=== PATIENT | male | born 1945 | race Caucasian/White ===

== ENCOUNTER 2018-09-01 11:53 | Inpatient (IN) | payer BC, MEDICARE, OTHER ==
[~2018-09-01] VITALS: Ht 179.1 cm; Wt 68.5 kg
--- NOTE | 2018-09-01 12:00 | NUR ---
BIB RA88 from [facility] Oncology clinic with c/o hypotension. Per EMS pt's BP was 86/40 on scene, pt was given NS 250ml bolus in route to ER and last BP recorded by EMS = 101/59, ZF=088 per EMS.
[2018-09-01] MEDS ORDERED: IV NORMAL SALINE 1000 ML BAG IV ONE (12:15)
[2018-09-01] MEDS ORDERED: ONDANSETRON 4 MG/2 ML VIAL IV ONE (12:15)
[2018-09-01] MEDS ORDERED: VANCOMYCIN IV 1,000 MG in IV DEXTROSE 5% 250 ML IV ONE (12:15)
[2018-09-01] MEDS ORDERED: PIPERACILLIN SODIUM/TAZOBACTAM 3.375 G in IV DEXTROSE 5% 50 ML IV ONE (12:15)
[2018-09-01] MEDS ORDERED: ACETAMINOPHEN ES 500 MG TABLET PO ONE (12:15)
--- NOTE | 2018-09-01 12:20 | NUR ---
CODE SEPSIS CALLED AT 1211.
[2018-09-01 12:24] LABS: *BILIRUBIN,URIN NEGATIVE (NEGATIVE); *BLOOD, URINE Trace-intact (NEGATIVE); *CLARITY,URINE CLEAR (CLEAR); *COLOR,URINE YELLOW (YELLOW); *KETONES,URINE TRACE (NEGATIVE); *PROTEIN,URINE TRACE (NEGATIVE); *UROBILINOGEN,URINE 0.2 E.U./dl (NORMAL); LEUKOCYTE ESTERASE ,URINE NEGATIVE (NEGATIVE); NITRITE, URINE NEGATIVE (NEGATIVE); PH,URINE 5.5 (5.0-8.0); UGLUCOSE NEGATIVE (NEGATIVE)
[2018-09-01 12:25] LABS: BASOPHILS # (AUTO) 0.1 K/uL (0.0-8.0); BASOPHILS % (AUTO) 0.5 % (0.0-2.0); EOSINOPHILS % (AUTO) 0.2 % (0.0-7.0); HEMOGLOBIN 11.4 g/dL (12.5-16.3); LYMPHOCYTES # (AUTO) 0.8 K/uL (20.0-40.0); LYMPHOCYTES % (AUTO) 6.7 % (20.5-51.5); MEAN CORPUSCULAR HEMOGLOBIN 26.8 uug (23.8-33.4); MEAN CORPUSCULAR HGB CONC 34 g/dL (32.5-36.3); MEAN CORPUSCULAR VOLUME 79.9 fL (73.0-96.2); MONOCYTES % (AUTO) 8.3 % (0.0-11.0); NEUTROPHILS # (AUTO) 9.8 K/uL (1.8-8.9); NEUTROPHILS % (AUTO) 84.3 % (38.5-71.5); PLATELET COUNT (AUTO) 187 K/uL (152-348); RED BLOOD CELL COUNT(AUTO) 4.25 MIL/uL (4.06-5.63); WHITE BLOOD COUNT (AUTO) 11.6 K/uL (3.6-10.2)
[2018-09-01] MEDS ORDERED: LEVE500T9 PO (12:25)
[2018-09-01] MEDS ORDERED: SIMV40TA5 PO (12:25)
[2018-09-01] MEDS ORDERED: NICO1PAT35 TD (12:25)
[2018-09-01] MEDS ORDERED: ASPI81TA31 PO (12:25)
[2018-09-01] MEDS ORDERED: METF-440 PO (12:25)
[2018-09-01] MEDS ORDERED: ONDA8TAB9 SL (12:25)
[2018-09-01] MEDS ORDERED: PANT40TA4 PO (12:25)
[2018-09-01] MEDS ORDERED: MIRACLE MOUTHWASH PO (12:25)
[2018-09-01] MEDS ORDERED: LISI10TA5 PO (12:25)
[2018-09-01] MEDS ORDERED: UBID50TA3 PO (12:25)
[2018-09-01] MEDS ORDERED: TRAZ-182 PO (12:25)
[2018-09-01] MEDS ORDERED: HYDR-3326 PO (12:25)
[2018-09-01] MEDS ORDERED: ALBU18HF2 IH (12:25)
[2018-09-01] MEDS ORDERED: ACET-2154 PO (12:25)
[2018-09-01] MEDS ORDERED: [UNRECOGNIZED DRUG - OTHER] TOP (12:25)
[2018-09-01] MEDS ORDERED: CIPR-262 PO (12:25)
[2018-09-01 12:26] LABS: BACTERIA,URINE FEW /HPF (NONE SEEN); MUCUS,URINE MODERATE /LPF (0-FEW); RBC,URINE 0-3 /HPF (0-3); SQUAMOUS EPITHELIAL CELL,UR FEW /HPF (NONE SEEN)
[2018-09-01] MEDS ORDERED: VANCOMYCIN IV 200 ML ONE (12:28)
[2018-09-01] MEDS ORDERED: ACETAMINOPHEN ES 500 MG TABLET ONE (12:28)
[2018-09-01] MEDS ORDERED: ONDANSETRON 4 MG/2 ML VIAL ONE (12:28)
[2018-09-01] MEDS ORDERED: PIPERACILLIN/TAZOBACTAM/D5W 50 ML IV ONE (12:29)
[2018-09-01 12:33] LABS: CARBON DIOXIDE 22 mmol/L (21-32); CHLORIDE 102 mmol/L (98-107); CREATININE 1.1 mg/dL (0.6-1.3); GLUCOSE 118 mg/dL (74-106); POTASSIUM 4.4 mmol/L (3.5-5.1); UREA NITROGEN, BLOOD 21 mg/dL (7-18)
[2018-09-01 12:45] LABS: NEUTROPHILS % (MANUAL) 85 % (42-75)
[2018-09-01 12:46] LABS: LYMPHOCYTES % (MANUAL) 7 % (20-40); MONOCYTES % (MANUAL) 8 % (2-10)
[2018-09-01 12:48] LABS: ALANINE AMINOTRANSFERASE 28 U/L (16-63); ALKALINE PHOSPHATASE 131 U/L (50-136); ASPARTATE AMINOTRANSFERASE 89 U/L (15-37); BILIRUBIN,DIRECT 0.2 mg/dL (0.0-0.2); BILIRUBIN,TOTAL 0.5 mg/dL (0.2-1.0); TOTAL PROTEIN, SERUM 6.4 g/dL (6.4-8.2)
[2018-09-01] MEDS ORDERED: ACETAMINOPHEN 325 MG TABLET PO PRN (14:00)
[2018-09-01] MEDS ORDERED: ZOLPIDEM 5 MG TABLET PO PRN (14:00)
[2018-09-01] MEDS ORDERED: Z GUARD REMEDY PASTE 57 GM TUBE TOP PRN (14:00)
[2018-09-01] MEDS ORDERED: ONDANSETRON 4 MG/2 ML VIAL IV PRN ×2 (14:00→16:00)
[2018-09-01] MEDS ORDERED: MAGNESIUM HYDROXIDE 30 ML LIQUID UDC PO PRN (14:00)
--- NOTE | 2018-09-01 14:20 | NUR ---
SBAR REPORTB TO 2ND FLOOR, PT TO RM 212 VIA W/C.
[2018-09-01] MEDS ORDERED: IPRATROPIUM BROMIDE 0.5 MG/2.5 ML NEBU NEB PRN (14:30)
[2018-09-01] MEDS ORDERED: ALBUTEROL SULFATE 2.5 MG/3 ML NEBU NEB PRN (14:30)
[2018-09-01] MEDS ORDERED: INSULIN REGULAR, HUMAN 300 UNIT/3 ML VIAL SQ PRN (14:30)
[2018-09-01] MEDS ORDERED: DEXTROSE 50% 50 ML DISP.SYRIN IV PRN (14:30)
--- NOTE | 2018-09-01 14:30 | NUR ---
Received this 73 yo male per telma from ER with the chief complaint of weakness and diagnosis fo sepsis. Transferred to bed comfortably. Routine admission care rendered. Placed on tele, SR. Awake, alert, oriented x 4, able to move extremities on purpose. Note SOB on exertion with O2 sat of 90 % on RA. Continent of bowel and bladder, uses urinal. Trent King FOOD TESTER seen patient with admission orders
--- NOTE | 2018-09-01 14:39 | NUR ---
Clinical Pharmacy Note: Vancomycin Dosing per Pharmacy Subjective: Vancomycin IV to start on this 73 yo male patient for empiric tx (waiting for MD note). had vanco 1gm IVPB x1 in ED today at noon Objective: BUN 21/Scr 1.1 WBC 11.6 Temperature 99.9 Assessment/Plan: Will start vancomycin 1000mg IVPB Q17hr for a predicted vancomycin steady state trough level of 15.8 mcg/ml. Will draw a vancomycin trough level prior to the 4th dose of vancomycin (not ordered yet). Will monitor renal function and adjust vancomycin dose, if needed, should renal function change significantly. Will follow daily.
[2018-09-01 14:42] VITALS: BP 89/57
[2018-09-01] MEDS ORDERED: [UNRECOGNIZED DRUG - OTHER] PO SCH (15:45)
[2018-09-01] MEDS: LEVOFLOXACIN 750MG/D5W 750 MG in PREMIXED 1 EACH IV SCH (16:41)
[2018-09-01] MEDS: IV NS 1000 ML 1,000 ML IV PRN ×2 (16:42→20:34)
--- NOTE | 2018-09-01 16:45 | NUR ---
IVF and Levaquin started as ordered
[2018-09-01] MEDS: BLOOD SUGAR DIAGNOSTIC 1 EACH STRIP VI SCH ×2 (17:36→21:37)
[2018-09-01] MEDS: ONDANSETRON INJ 8 MG in IV NORMAL SALINE 50 ML IV PRN (18:14)
--- NOTE | 2018-09-01 18:15 | NUR ---
Nauseated with vomiting. Zofran IV given as ordered. Repositioned in bed comfortably.
[2018-09-01 19:50] VITALS: BP 84/52
[2018-09-01] MEDS ORDERED: IV NS 1000 ML 1,000 ML IV ONE (20:30)
[2018-09-01] MEDS: CEFEPIME HCL 1 G in IV DEXTROSE 5% 50 ML IV SCH (20:34)
[2018-09-01] MEDS: LEVETIRACETAM 500 MG TABLET PO SCH (20:35)
[2018-09-01] MEDS: SIMVASTATIN 40 MG TABLET PO SCH (20:35)
[2018-09-01] MEDS: TRAZODONE 50 MG TABLET PO SCH (20:35)
--- NOTE | 2018-09-01 21:50 | NUR ---
Pnts SBP was 80s, IV NS Bolus was ordered by Dr. Ambrosio. IV Bolus was infused ; SBP above 100 Cont monitor
[2018-09-01] MEDS ORDERED: MEROPENEM 1 G in IV NORMAL SALINE 100 ML IV SCH ×4 (22:00)
[2018-09-01] MEDS ORDERED: MEROPENEM 0.5 G in IV NORMAL SALINE 50 ML IV SCH (22:00)
[2018-09-01 22:18] VITALS: BP 92/51
[2018-09-02 00:34] VITALS: BP 101/60
[2018-09-02 02:33] LABS: BASOPHILS % (AUTO) 0.4 % (0.0-2.0); EOSINOPHILS # (AUTO) 0.2 K/uL (0.0-0.7); EOSINOPHILS % (AUTO) 3.2 % (0.0-7.0); HEMATOCRIT 28.1 % (36.7-47.1); HEMOGLOBIN 9.3 g/dL (12.5-16.3); LYMPHOCYTES % (AUTO) 16.1 % (20.5-51.5); MEAN CORPUSCULAR HEMOGLOBIN 26.5 uug (23.8-33.4); MEAN CORPUSCULAR HGB CONC 33 g/dL (32.5-36.3); MEAN CORPUSCULAR VOLUME 79.8 fL (73.0-96.2); MONOCYTES # (AUTO) 0.8 K/uL (2.0-10.0); MONOCYTES % (AUTO) 12.6 % (0.0-11.0); NEUTROPHILS # (AUTO) 4.4 K/uL (1.8-8.9); NEUTROPHILS % (AUTO) 67.7 % (38.5-71.5); PLATELET COUNT (AUTO) 140 K/uL (152-348); RED BLOOD CELL COUNT(AUTO) 3.52 MIL/uL (4.06-5.63); WHITE BLOOD COUNT (AUTO) 6.5 K/uL (3.6-10.2)
[2018-09-02 02:54] LABS: CARBON DIOXIDE 22 mmol/L (21-32); CHLORIDE 108 mmol/L (98-107); CHOLESTEROL 175 mg/dL (<200); CREATININE 0.9 mg/dL (0.6-1.3); GLUCOSE 86 mg/dL (74-106); HDL CHOLESTEROL 20 mg/dL (40-60); PHOSPHOROUS 2.6 mg/dL (2.5-4.9); POTASSIUM 3.9 mmol/L (3.5-5.1); TRIGLYCERIDES 117 MG/DL (30-150); UREA NITROGEN, BLOOD 17 mg/dL (7-18)
[2018-09-02 03:10] LABS: MAGNESIUM 1.2 mg/dL (1.8-2.4)
--- NOTE | 2018-09-02 04:00 | NUR ---
Dr. King ordered Labs in the 0000,09/02/18. Critical Lab og Mg 1.[address] Sorto, 2 g of Mg is replacing now per Dr. Sorto's order. Cont to monitor.
[2018-09-02] MEDS: MAGNESIUM SULFATE/D5W 100 ML IV SCH ×2 (04:02→05:13)
[2018-09-02 05:03] VITALS: BP 96/50
[2018-09-02] MEDS: VANCOMYCIN IV 1 G in PREMIXED 0 EACH IV SCH ×2 (05:29→21:52)
[2018-09-02] MEDS: BLOOD SUGAR DIAGNOSTIC 1 EACH STRIP VI SCH ×4 (06:51→20:33)
[2018-09-02] MEDS: PANTOPRAZOLE SODIUM 40 MG TABLET.DR PO SCH (06:55)
--- NOTE | 2018-09-02 07:39 | NUR ---
Awake, alert, oriented x 4. Denies pain, not in distress. IVF infusing. Tele SR
[2018-09-02 07:56] VITALS: BP 112/70
[2018-09-02] MEDS: ASPIRIN 81 MG TAB.CHEW PO SCH (08:34)
[2018-09-02] MEDS: LEVETIRACETAM 500 MG TABLET PO SCH ×2 (08:35→20:33)
[2018-09-02] MEDS: CEFEPIME HCL 1 G in IV DEXTROSE 5% 50 ML IV SCH ×2 (08:41→20:32)
[2018-09-02] MEDS: NICOTINE 14 MG/24HR PATCH TD SCH (08:41)
[2018-09-02] MEDS ORDERED: NICOTINE 21 MG/24HR PATCH TD SCH (09:00)
[2018-09-02] MEDS ORDERED: LISINOPRIL 10 MG TABLET PO SCH (09:00)
[2018-09-02] MEDS ORDERED: MAGNESIUM SULFATE/D5W 100 ML IV SCH (10:00)
[2018-09-02] MEDS: CALCIUM CARBONATE 500 MG TABLET PO SCH ×2 (11:10→20:33)
[2018-09-02 11:20] VITALS: BP 117/71
[2018-09-02] MEDS: IV NS 1000 ML 1,000 ML IV PRN (11:52)
--- NOTE | 2018-09-02 11:56 | NUR ---
Clinical Pharmacy Note: Vancomycin Dosing per Pharmacy Subjective: Vancomycin IV to continue on this 73 yo male patient for pneumonia/sepsis. Objective: BUN 17/Scr 0.9 WBC 6.5 Temperature 98.1 Assessment/Plan: Will continue vancomycin 1000mg IVPB Q17hr for a predicted vancomycin steady state trough level of 15.8 mcg/ml. Will draw a vancomycin trough level prior to the 4th dose of vancomycin (ordered for tomorrow at 1430). Will monitor renal function and adjust vancomycin dose, if needed, should renal function change significantly. Will follow daily.
--- NOTE | 2018-09-02 12:47 | NUR ---
Eating fairly. Not in distress, afebrile, denies pain. Endorsed for further care
[2018-09-02] MEDS: ONDANSETRON INJ 8 MG in IV NORMAL SALINE 50 ML IV PRN (13:36)
[2018-09-02 15:20] VITALS: BP 113/73
[2018-09-02] MEDS: LEVOFLOXACIN 750MG/D5W 750 MG in PREMIXED 1 EACH IV SCH (16:41)
[2018-09-02 17:59] LABS: *AMPHETAMINE, URINE NEGATIVE (NEGATIVE); *BARBITURATE, URINE NEGATIVE (NEGATIVE); *CANNABINOID, URINE NEGATIVE (NEGATIVE); *COCCAINE, URINE NEGATIVE (NEGATIVE); *OPIATE, URINE NEGATIVE (NEGATIVE); *PHENCYCLIDINE SCREEN,URINE NEGATIVE (NEGATIVE)
--- NOTE | 2018-09-02 19:30 | NUR ---
Received patient in stable condition at start of shift. Vital signs are in range. Pertinent assessment completed. A/Ox4 & able to make all his needs known. Skin intact. All extremities intact. Noted with right side nilson cath currently running with IV NS at 100cc/hr. Also with left AC IV site which is locked. Denying pain & SOB at start of shift. Patient stating he has constant N/V. No emesis present at start of shift. Will administer medications per MD & reassess nausea. On ATB therapy. Bed in low position & locked. Call light within reach. Will continue to monitor through shift.
[2018-09-02] MEDS: TRAZODONE 50 MG TABLET PO SCH (20:33)
[2018-09-02] MEDS: SIMVASTATIN 40 MG TABLET PO SCH (20:33)
[2018-09-02 21:03] VITALS: BP 121/73
[2018-09-03 00:55] VITALS: BP 139/79
[2018-09-03 05:55] VITALS: BP 120/72
[2018-09-03] MEDS: PANTOPRAZOLE SODIUM 40 MG TABLET.DR PO SCH (06:15)
--- NOTE | 2018-09-03 06:27 | NUR ---
Patient slept intermittently during the night. No C/O pain or SOB during shift. All needs attended to. All medications administered per MD order. No N/V noted during the shift. Blood sugar this AM at 74. No s/s of hypo/hyperglycemia noted. Safety measures maintained. Call light within reach. Will endorse accordingly.
[2018-09-03] MEDS: BLOOD SUGAR DIAGNOSTIC 1 EACH STRIP VI SCH ×4 (06:34→20:34)
[2018-09-03 07:07] LABS: CARBON DIOXIDE 23 mmol/L (21-32); CHLORIDE 108 mmol/L (98-107); CREATININE 0.7 mg/dL (0.6-1.3); GLUCOSE 93 mg/dL (74-106); MAGNESIUM 1.5 mg/dL (1.8-2.4); PHOSPHOROUS 2.5 mg/dL (2.5-4.9); POTASSIUM 3.5 mmol/L (3.5-5.1); UREA NITROGEN, BLOOD 8 mg/dL (7-18)
[2018-09-03 07:15] LABS: BASOPHILS % (AUTO) 0.5 % (0.0-2.0); EOSINOPHILS # (AUTO) 0.2 K/uL (0.0-0.7); EOSINOPHILS % (AUTO) 3.2 % (0.0-7.0); HEMATOCRIT 29.4 % (36.7-47.1); HEMOGLOBIN 9.8 g/dL (12.5-16.3); LYMPHOCYTES # (AUTO) 1.5 K/uL (20.0-40.0); MEAN CORPUSCULAR HEMOGLOBIN 26.8 uug (23.8-33.4); MEAN CORPUSCULAR HGB CONC 33 g/dL (32.5-36.3); MEAN CORPUSCULAR VOLUME 80.7 fL (73.0-96.2); MONOCYTES # (AUTO) 0.8 K/uL (2.0-10.0); MONOCYTES % (AUTO) 11.9 % (0.0-11.0); NEUTROPHILS # (AUTO) 3.9 K/uL (1.8-8.9); NEUTROPHILS % (AUTO) 61.4 % (38.5-71.5); PLATELET COUNT (AUTO) 158 K/uL (152-348); RED BLOOD CELL COUNT(AUTO) 3.64 MIL/uL (4.06-5.63); WHITE BLOOD COUNT (AUTO) 6.3 K/uL (3.6-10.2)
[2018-09-03] MEDS: ASPIRIN 81 MG TAB.CHEW PO SCH (10:00)
[2018-09-03] MEDS: CALCIUM CARBONATE 500 MG TABLET PO SCH (10:01)
[2018-09-03] MEDS: NICOTINE 14 MG/24HR PATCH TD SCH (10:01)
[2018-09-03] MEDS: LEVETIRACETAM 500 MG TABLET PO SCH ×2 (10:01→20:25)
[2018-09-03] MEDS: CEFEPIME HCL 1 G in IV DEXTROSE 5% 50 ML IV SCH ×2 (10:05→20:26)
[2018-09-03] MEDS: MAGNESIUM SULFATE/D5W 100 ML IV SCH ×4 (10:05→13:39)
[2018-09-03] MEDS: ENOXAPARIN SODIUM 40 MG/0.4 ML DISP.SYRIN SQ SCH (10:10)
[2018-09-03 11:16] VITALS: BP 116/74
[2018-09-03 15:09] VITALS: BP 103/62
[2018-09-03] MEDS: VANCOMYCIN IV 1 G in PREMIXED 0 EACH IV SCH (15:53)
[2018-09-03] MEDS: LEVOFLOXACIN 750MG/D5W 750 MG in PREMIXED 1 EACH IV SCH (16:14)
--- NOTE | 2018-09-03 16:21 | NUR ---
Clinical Pharmacy Note: Vancomycin Dosing per Pharmacy Subjective: Vancomycin IV to continue on this 73 yo male patient for pneumonia/sepsis. Objective: BUN 8/Scr 0.7 WBC 6.3 Temperature 97.8 Vancomycin trough today at 1440:7.9 Assessment/Plan: Since Vancomycin trough is subtherapeutic, will change dose to 1 gram IV every 11hrs(second dose tomorrow at 0300)for a predicted vancomycin steady state trough level of 16.2 mcg/ml. Will draw a vancomycin trough level prior to the 4th dose of vancomycin (not ordered yet). Will monitor renal function and adjust vancomycin dose, if needed, should renal function change significantly. Will follow daily.
--- NOTE | 2018-09-03 19:10 | NUR ---
Received patient asleep on bed, no signs of acute distress noted at this time. IV site on LAC, patent and intact. Safety measures initiated, placed bed on low and locked position, bed siderails padded. Bed alarm on. Patient belongings and call owens within reach.
[2018-09-03] MEDS: SIMVASTATIN 40 MG TABLET PO SCH (20:25)
[2018-09-03] MEDS: TRAZODONE 50 MG TABLET PO SCH (20:25)
[2018-09-03 20:35] VITALS: BP 108/62
[2018-09-04] MEDS ORDERED: VANCOMYCIN IV 1 G in PREMIXED 0 EACH IV SCH ×2 (03:00→16:00)
[2018-09-04] MEDS: IV NS 1000 ML 1,000 ML IV PRN ×2 (03:33→23:04)
[2018-09-04 05:04] VITALS: BP 123/67
--- NOTE | 2018-09-04 06:43 | NUR ---
PATIENT SLEPT THROUGHOUT THE SHIFT. NO SIGNS OF ACUTE DISTRESS NOTED AT THIST ORACIO. NO EPISODE OF N/V NOTED. IV SITE ON LAC AND PORTACATH ON R UPPER CHEST, PATENT AND INTACT. KEPT PATIENT SAFE AND COMFORTABLE AT ALL TIMES. ALL NEEDS ATTENDED AND MET. CALL TORRE WITHIN REACH.
[2018-09-04] MEDS: BLOOD SUGAR DIAGNOSTIC 1 EACH STRIP VI SCH ×4 (06:54→21:29)
[2018-09-04] MEDS: PANTOPRAZOLE SODIUM 40 MG TABLET.DR PO SCH (06:54)
[2018-09-04] MEDS: NICOTINE 14 MG/24HR PATCH TD SCH (09:00)
[2018-09-04] MEDS: ENOXAPARIN SODIUM 40 MG/0.4 ML DISP.SYRIN SQ SCH (09:00)
[2018-09-04] MEDS: ASPIRIN 81 MG TAB.CHEW PO SCH (09:46)
[2018-09-04] MEDS: LEVETIRACETAM 500 MG TABLET PO SCH ×2 (09:46→21:21)
[2018-09-04] MEDS: CEFEPIME HCL 1 G in IV DEXTROSE 5% 50 ML IV SCH ×2 (09:47→21:36)
[2018-09-04] MEDS: ONDANSETRON INJ 8 MG in IV NORMAL SALINE 50 ML IV PRN (10:02)
[2018-09-04 11:11] VITALS: BP 118/79
--- NOTE | 2018-09-04 12:36 | NUR ---
Clinical Pharmacy Note: Vancomycin Dosing per Pharmacy Subjective: Vancomycin IV to continue on this 73 yo male patient for pneumonia/sepsis. Objective: BUN 8/Scr 0.7 (09/03) WBC 6.3 (09/03) Temperature 97.4 Vancomycin trough pending today at 1330 Assessment/Plan: Awaiting trough before 4th scheduled dose at 1400. Trough scheduled for 1330, will check level at that time and adjust as needed. Will update when level available. Will follow Addendum: 09/04/18 at 1552 by VELIA LEIGH ADM TROUGH RESULTED 9.0, TAKEN ONE HOUR LATE AT 1431. ADJUSTED FOR LEVEL TIMES/ADMINISTRATION, REGIMEN WILL BE ADJUSTED TO 1GM Q8H FOR NEW ESTIMATED TROUGH OF 18, FIRST DOSE TODAY AT 1600. NEXT TROUGH ORDERED DUE TOMORROW AT 1530. WILL CHECK AND ADJUST NEEDED. WILL FOLLOW
[2018-09-04 15:15] VITALS: BP 112/68
[2018-09-04] MEDS: LEVOFLOXACIN 750MG/D5W 750 MG in PREMIXED 1 EACH IV SCH (16:20)
--- NOTE | 2018-09-04 19:46 | NUR ---
RECEIVED PATIENT ALERT ORIENTED, NO SOB NO CHEST PAIN NOTED. USES URINAL FOR BLADDER ELIMINATIONS, NO COMPLAIN OF PAIN, CALL LIGHT WITHIN REACH.
[2018-09-04 20:16] VITALS: BP 118/68
--- NOTE | 2018-09-04 20:50 | NUR ---
PATIENT REQUEST TO AMBULATE, ASSIST PATIENT TO WALK IN THE HALLWAYS WITH THE WALKER. PATIENT WALKED HAFT WAY OF THE HALLWAYS, THEN ASSIST IN THE WHEELCHAIR. NO COMPLAIN OF PAIN, CALL LIGHT WITHIN REACH.
[2018-09-04] MEDS: TRAZODONE 50 MG TABLET PO SCH (21:21)
[2018-09-04] MEDS: SIMVASTATIN 40 MG TABLET PO SCH (21:21)
--- NOTE | 2018-09-05 05:46 | NUR ---
PATIENT SLEPT MOST OF THE NIGHT, NO SOB NO CHEST PAIN NOTED, NO COMPLAIN OF PAIN NOTED. SHERRI CATH PATENT, USES URINAL FOR BLADDER ELIMINATIONS, ASSISTED WITH TOILETING, CALL LIGHT WITHIN REACH.
[2018-09-05 06:16] VITALS: BP 99/62
[2018-09-05] MEDS: PANTOPRAZOLE SODIUM 40 MG TABLET.DR PO SCH (06:17)
[2018-09-05] MEDS: BLOOD SUGAR DIAGNOSTIC 1 EACH STRIP VI SCH ×4 (06:21→20:12)
--- NOTE | 2018-09-05 08:00 | NUR ---
Pt is in no acute distress. Plan of care implemented for fall precaution, nausea management, pain management. Pt agreeable with plan of care. call light is within reach.
[2018-09-05 08:48] LABS: BASOPHILS # (AUTO) 0.1 K/uL (0.0-8.0); BASOPHILS % (AUTO) 1.1 % (0.0-2.0); EOSINOPHILS # (AUTO) 0.2 K/uL (0.0-0.7); EOSINOPHILS % (AUTO) 3.9 % (0.0-7.0); HEMATOCRIT 31.9 % (36.7-47.1); HEMOGLOBIN 10.7 g/dL (12.5-16.3); LYMPHOCYTES # (AUTO) 1.8 K/uL (20.0-40.0); LYMPHOCYTES % (AUTO) 31.7 % (20.5-51.5); MEAN CORPUSCULAR HGB CONC 34 g/dL (32.5-36.3); MEAN CORPUSCULAR VOLUME 80.3 fL (73.0-96.2); MONOCYTES # (AUTO) 0.8 K/uL (2.0-10.0); MONOCYTES % (AUTO) 13.1 % (0.0-11.0); NEUTROPHILS # (AUTO) 2.9 K/uL (1.8-8.9); NEUTROPHILS % (AUTO) 50.2 % (38.5-71.5); PLATELET COUNT (AUTO) 213 K/uL (152-348); RED BLOOD CELL COUNT(AUTO) 3.97 MIL/uL (4.06-5.63); WHITE BLOOD COUNT (AUTO) 5.8 K/uL (3.6-10.2)
[2018-09-05] MEDS: ENOXAPARIN SODIUM 40 MG/0.4 ML DISP.SYRIN SQ SCH (09:00)
[2018-09-05] MEDS: NICOTINE 14 MG/24HR PATCH TD SCH (09:00)
[2018-09-05 09:03] LABS: CARBON DIOXIDE 27 mmol/L (21-32); CHLORIDE 106 mmol/L (98-107); CREATININE 0.7 mg/dL (0.6-1.3); GLUCOSE 101 mg/dL (74-106); MAGNESIUM 1.5 mg/dL (1.8-2.4); POTASSIUM 3.3 mmol/L (3.5-5.1); UREA NITROGEN, BLOOD 5 mg/dL (7-18)
[2018-09-05] MEDS: ONDANSETRON INJ 8 MG in IV NORMAL SALINE 50 ML IV PRN (09:24)
[2018-09-05] MEDS: LEVETIRACETAM 500 MG TABLET PO SCH ×2 (09:25→20:09)
[2018-09-05] MEDS: ASPIRIN 81 MG TAB.CHEW PO SCH (09:26)
[2018-09-05] MEDS ORDERED: POTASSIUM CHLORIDE 20 MEQ TAB.PRT.SR PO ONE (10:45)
[2018-09-05] MEDS: CEFEPIME HCL 1 G in IV DEXTROSE 5% 50 ML IV SCH ×2 (10:55→20:09)
[2018-09-05 11:10] VITALS: BP 109/74
[2018-09-05] MEDS: MAGNESIUM SULFATE/D5W 100 ML IV SCH ×2 (11:27→13:30)
[2018-09-05 15:02] VITALS: BP 111/91
[2018-09-05] MEDS: LEVOFLOXACIN 750 MG TABLET PO SCH (17:15)
--- NOTE | 2018-09-05 18:30 | NUR ---
plan of care effective. Pt is in no acute distress. Pt ambulated around hallway with good balance. Call light is within reach.
--- NOTE | 2018-09-05 19:20 | NUR ---
Received patient lying in bed. AAOX4. In no acute distress. Denies any SOB. O2 sat at 96% on RA. Porth a Cath on right upper chest area intact and patent. Denies any nausea or vomiting at this time. Needs assessed and attended to. Safety measure initiated and call owens within reach.
[2018-09-05] MEDS: SIMVASTATIN 40 MG TABLET PO SCH (20:09)
[2018-09-05] MEDS: HYDROCODONE/APAP 5-325MG TABLET PO PRN (20:21)
[2018-09-05 20:45] VITALS: BP 116/59
[2018-09-05] MEDS: TRAZODONE 50 MG TABLET PO SCH (21:03)
[2018-09-06 04:46] VITALS: BP 110/66
[2018-09-06 05:18] LABS: BASOPHILS # (AUTO) 0.1 K/uL (0.0-8.0); BASOPHILS % (AUTO) 1.5 % (0.0-2.0); EOSINOPHILS # (AUTO) 0.3 K/uL (0.0-0.7); EOSINOPHILS % (AUTO) 5.2 % (0.0-7.0); HEMATOCRIT 30.5 % (36.7-47.1); HEMOGLOBIN 10.3 g/dL (12.5-16.3); LYMPHOCYTES # (AUTO) 1.3 K/uL (20.0-40.0); LYMPHOCYTES % (AUTO) 24.6 % (20.5-51.5); MEAN CORPUSCULAR HEMOGLOBIN 26.6 uug (23.8-33.4); MEAN CORPUSCULAR HGB CONC 34 g/dL (32.5-36.3); MEAN CORPUSCULAR VOLUME 79.1 fL (73.0-96.2); MONOCYTES # (AUTO) 0.8 K/uL (2.0-10.0); MONOCYTES % (AUTO) 15.7 % (0.0-11.0); NEUTROPHILS # (AUTO) 2.8 K/uL (1.8-8.9); PLATELET COUNT (AUTO) 210 K/uL (152-348); RED BLOOD CELL COUNT(AUTO) 3.86 MIL/uL (4.06-5.63); WHITE BLOOD COUNT (AUTO) 5.3 K/uL (3.6-10.2)
[2018-09-06 05:29] LABS: CARBON DIOXIDE 27 mmol/L (21-32); CHLORIDE 105 mmol/L (98-107); CREATININE 0.6 mg/dL (0.6-1.3); GLUCOSE 94 mg/dL (74-106); MAGNESIUM 1.7 mg/dL (1.8-2.4); POTASSIUM 3.7 mmol/L (3.5-5.1); UREA NITROGEN, BLOOD 6 mg/dL (7-18)
[2018-09-06] MEDS: PANTOPRAZOLE SODIUM 40 MG TABLET.DR PO SCH (06:07)
[2018-09-06 06:13] LABS: EOSINOPHILS % (MANUAL) 6 % (0-8); LYMPHOCYTES % (MANUAL) 31 % (20-40); MONOCYTES % (MANUAL) 10 % (2-10); NEUTROPHILS % (MANUAL) 53 % (42-75)
--- NOTE | 2018-09-06 06:14 | NUR ---
AAOX4. In no acute distress. VS WNL. Denies any further pain or SOB. O2 sat at 99% on RA. Port a cath on right upper chest area intact and patent. No nausea or vomiting complain. Needs attended to and met. Safety measure maintained and call owens within reach.
[2018-09-06] MEDS: BLOOD SUGAR DIAGNOSTIC 1 EACH STRIP VI SCH ×4 (06:39→20:05)
[2018-09-06] MEDS: LEVETIRACETAM 500 MG TABLET PO SCH ×2 (08:16→20:02)
[2018-09-06] MEDS: ASPIRIN 81 MG TAB.CHEW PO SCH (08:16)
[2018-09-06] MEDS: ENOXAPARIN SODIUM 40 MG/0.4 ML DISP.SYRIN SQ SCH (08:16)
[2018-09-06] MEDS: NICOTINE 14 MG/24HR PATCH TD SCH (08:17)
[2018-09-06] MEDS: CEFEPIME HCL 1 G in IV DEXTROSE 5% 50 ML IV SCH ×2 (08:21→20:02)
[2018-09-06 11:10] VITALS: BP 138/64
[2018-09-06] MEDS: MAGNESIUM SULFATE/D5W 100 ML IV SCH ×2 (11:54→12:19)
[2018-09-06 15:01] VITALS: BP 122/79
[2018-09-06] MEDS: LEVOFLOXACIN 750 MG TABLET PO SCH (16:04)
--- NOTE | 2018-09-06 19:20 | NUR ---
Received patient lying in bed. AAOX4. In no acute distress. Denies any pain or SOB. O2 sat at 96% on RA. Port a cath on right upper chest area intact and patent. No nausea or vomiting complain at this time. Safety measure initiated and call owens within reach.
[2018-09-06 19:24] VITALS: BP 110/66
[2018-09-06] MEDS: SIMVASTATIN 40 MG TABLET PO SCH (20:02)
[2018-09-06] MEDS: TRAZODONE 50 MG TABLET PO SCH (20:02)
[2018-09-06] MEDS: HYDROCODONE/APAP 5-325MG TABLET PO PRN (23:46)
[2018-09-07 03:39] VITALS: BP 96/57
--- NOTE | 2018-09-07 06:11 | NUR ---
AAOX4. In no acute distress. VS WNL. Given PRN per order given for complain of left leg pain and effective. Denies any SOB. Port a cath on right upper chest area intact and patent. No nausea or vomiting complain. Needs attended to and met. Safety measure maintained and call owens within reach.
[2018-09-07] MEDS: PANTOPRAZOLE SODIUM 40 MG TABLET.DR PO SCH (06:13)
[2018-09-07] MEDS: BLOOD SUGAR DIAGNOSTIC 1 EACH STRIP VI SCH ×2 (06:36→11:29)
[2018-09-07 07:07] LABS: CARBON DIOXIDE 28 mmol/L (21-32); CHLORIDE 102 mmol/L (98-107); CREATININE 0.7 mg/dL (0.6-1.3); GLUCOSE 91 mg/dL (74-106); MAGNESIUM 1.7 mg/dL (1.8-2.4); POTASSIUM 3.8 mmol/L (3.5-5.1); UREA NITROGEN, BLOOD 7 mg/dL (7-18)
[2018-09-07] MEDS: LEVETIRACETAM 500 MG TABLET PO SCH (08:08)
[2018-09-07] MEDS: ASPIRIN 81 MG TAB.CHEW PO SCH (08:08)
[2018-09-07] MEDS: NICOTINE 14 MG/24HR PATCH TD SCH (08:09)
[2018-09-07] MEDS: ENOXAPARIN SODIUM 40 MG/0.4 ML DISP.SYRIN SQ SCH (08:09)
[2018-09-07] MEDS: CEFEPIME HCL 1 G in IV DEXTROSE 5% 50 ML IV SCH (08:19)
[2018-09-07 11:38] VITALS: BP 107/77
[2018-09-07] MEDS: MAGNESIUM SULFATE/D5W 100 ML IV SCH ×2 (14:13→15:05)
[2018-09-07] MEDS ORDERED: LEVO750T21 PO (14:51)
[2018-09-07] MEDS: LEVOFLOXACIN 750 MG TABLET PO SCH (15:52)
[2018-09-07 15:54] VITALS: BP 120/86
--- NOTE | 2018-09-07 16:32 | NUR ---
d/c orders received noted and carried out,d/c instruction and education given to the pt.pt said he will follow up with his dr in one week.pt left the facility via private car in stable condition
== END 2018-09-07 19:00 | disposition home health service (06) | DRG 177 ==
LOC: ER 11:55 → TELE 13:42 → MED 09-02 20:00
PROVIDERS: ADMIT Hospitalist; ATTEND Hospitalist
DX: J15.6 Pneumonia due to other Gram-negative bacteria (principal); G92 Toxic encephalopathy; C34.11 Malignant neoplasm of upper lobe, right bronchus or lung; C15.5 Malignant neoplasm of lower third of esophagus; E87.1 Hypo-osmolality and hyponatremia; J44.0 Chronic obstructive pulmonary disease with (acute) lower respiratory infection; E44.0 Moderate protein-calorie malnutrition; R09.02 Hypoxemia; E83.42 Hypomagnesemia; G40.909 Epilepsy, unspecified, not intractable, without status epilepticus; Z87.891 Personal history of nicotine dependence; Z68.21 Body mass index [BMI] 21.0-21.9, adult; N40.0 Benign prostatic hyperplasia without lower urinary tract symptoms; G47.00 Insomnia, unspecified; I10 Essential (primary) hypertension; E11.9 Type 2 diabetes mellitus without complications; D64.9 Anemia, unspecified; Z85.841 Personal history of malignant neoplasm of brain; I95.9 Hypotension, unspecified; R11.2 Nausea with vomiting, unspecified; E86.0 Dehydration; E83.51 Hypocalcemia; E78.5 Hyperlipidemia, unspecified
CPT/HCPCS: 36415; 70030-TC; 70450; 71045; 80307; 83605; 83735; 84100; 84443; 85025; 85730; 87040; 87086; 87400; 93005; 93307; A4663; A9150; G0378; J0692; J1650; J1956; J2185; J2405; J2543; J3370; J3475; J3490; J7030; J7040; J7060